=== PATIENT | female | born 1950 | race Caucasian/White ===

== ENCOUNTER 2016-07-05 04:19 | Inpatient (IN) | payer OTHER ==
[~2016-07-05] VITALS: Ht 149.9 cm; Wt 63.5 kg
[~2016-07-05 04:19] MED LIST: KEFLEX500 M1 PO; PERCOCET 5-3251 EACH PO
--- NOTE | 2016-07-05 04:25 | NUR ---
65YO FEMALE TO RM 5 W/CO L CP THAT AWOKE HER THIS AM. STATEES PAIN "WORSENS W/DP BREATH" PT HAS HX OF COPD AND ON 3L NASAL O2 AT ALL TIMES SAT = 88 ON 3L.
--- NOTE | 2016-07-05 04:35 | ED DYSPNEA/ASTHMA COMPLAINT ---
History of Present Illness General Chief Complaint: Dyspnea (COPD, CHF, Other) Stated Complaint: CP Source: patient, family Exam Limitations: no limitations Vital Signs & Intake/Output Vital Signs & Intake/Output Vital Signs Date Time Temp Pulse Resp B/P Pulse O2 O2 Flow FiO2 Ox Delivery Rate 07/05 0502 100 8L 07/05 0446 96 Nasal 3.0L Cannula 07/05 0430 98.0 71 22 139/77 82 Nasal 3.0L Cannula Allergies Coded Allergies: latex (Intermediate, RASH 10/02/15) Reconcile Medications Cephalexin (Keflex) 500 MG CAPSULE 1 CAP PO TID PPX Oxycodone HCl/Acetaminophen (Percocet 5-325 MG Tablet) 1 EACH TABLET 1 TAB PO BID PRN BREAKTHROUGH PAIN Triage Nurses Notes Reviewed? yes Onset: Gradual Duration: day(s): Timing: recent history Severity: moderate Activities at Onset: rest Prior Episodes/Possible Cause: occasional episodes Associated Symptoms: cough, wheezing HPI: 65 yo woman 02 dependent copd, presents with dyspnea, hypoxia, left sided chest wall pain for the past 1-2 days, which worsened this AM. She notes that her left rib cage pain is worse with palpation. She has no swelling of lower extremities, orthopnea, fever, chills. Past History Travel History Traveled to [place] past 21 day No Medical History Any Pertinent Medical History? see below for history Neurological: CVA, TIA, PARTIAL MEMORY LOSS S/P Cardiovascular: hyperlipidemia Respiratory: COPD Surgical History Surgical History: non-contributory Psychosocial History What is your primary language Arabic Family History Hx Contributory? No Review of Systems Review of Systems Constitutional: Reports: no symptoms. EENTM: Reports: no symptoms. Respiratory: Reports: no symptoms. Cardiovascular: Reports: no symptoms. GI: Reports: no symptoms. Genitourinary: Reports: no symptoms. Musculoskeletal: Reports: no symptoms. Skin: Reports: no symptoms. Neurological/Psychological: Reports: no symptoms. Hematologic/Endocrine: Reports: no symptoms. Immunologic/Allergic: Reports: no symptoms. All Other Systems: Reviewed and Negative Physical Exam Physical Exam General Appearance: well developed/nourished, mild distress Head: atraumatic, normal appearance Eyes: Bilateral: normal appearance. Ears, Nose, Throat: normal pharynx, normal ENT inspection Neck: normal inspection, supple, full range of motion Respiratory: wheezing, respiratory distress Cardiovascular: regular rate/rhythm Gastrointestinal: normal bowel sounds, soft, non-tender, no organomegaly Extremities: normal inspection Neurologic/Psych: no motor/sensory deficits, awake, alert, oriented x 3 Skin: intact, normal color, warm/dry Core Measures ACS in differential dx? No Severe Sepsis Present: No Septic Shock Present: No Progress Differential Diagnosis: asthma, AMI, CHF, COPD, musculoskeletal pain Plan of Care: Orders Procedure Date/time Status Nothing by Mouth 07/05 B Active Patient Data 07/05 712 Active Saline Lock 07/05 657 Active Misc Message 07/05 657 Active ED Holding Orders 07/05 657 Active Admit to inpatient 07/05 657 Active Code Status 07/05 657 Active D-DIMER 07/05 453 Complete BLOOD CULTURE 07/06 439 Active Saline Lock 07/05 437 Active Misc Message 07/05 437 Active ED Holding Orders 07/05 437 Active Vital Signs 07/05 437 Active Code Status 07/05 437 Complete Admit to inpatient 07/05 436 Active BLOOD CULTURE 07/06 435 Active TROPONIN LEVEL 07/06 419 Complete PARTIAL THROMBOPLASTIN TIME 07/06 419 Complete PROTHROMBIN TIME 07/06 419 Complete COMPREHENSIVE METABOLIC PANEL 07/06 419 Complete CBC WITHOUT DIFFERENTIAL 07/06 419 Complete B-TYPE NATRIURETIC PEP (BNP) 07/06 419 Complete EKG 07/06 419 Active Laboratory Tests 07/05/16 0454: Anion Gap 10, Estimated GFR > 60, BUN/Creatinine Ratio 12.5, Glucose 90, Calcium 8.9, Total Bilirubin 0.5, AST 18, ALT 31, Alkaline Phosphatase 90, Troponin I < 0.01, Omp-L-Fabfccodhoy Pept 214 H, Total Protein 6.4, Albumin 3.6, Globulin 2.8, Albumin/Globulin Ratio 1.3, PT 11.4, INR 1.09, APTT 31, D-Dimer < 200, CBC w Diff NO MAN DIFF REQ, RBC 4.00 L, MCV 87.2, MCH 28.3, RDW 14.0, MPV 9.1, Gran % 68.6, Lymphocytes % 25.1, Monocytes % 4.3, Eosinophils % 1.9, Basophils % 0.1, Absolute Granulocytes 8.8 H, Absolute Lymphocytes 3.2, Absolute Monocytes 0.6, Absolute Eosinophils 0.2, Absolute Basophils 0, PUBS MCHC 32.5 L 07/05/16437: D-Dimer Cancelled Microbiology 07/05 456 BLOOD: Blood Culture - RECD 07/05 449 BLOOD: Blood Culture - RECD Diagnostic Imaging: Viewed by Me: Radiology Read. Discussed w/RAD: Radiology Read. CXR Impression: NO ACUTE CHANGE Initial ED EKG: AFIB Comments: PATIENT: ELLIS BEST PRESENT AGE: 65 PATIENT ACCOUNT NO: [id number] : 48 LOCATION: [facility] ORDERING PHYSICIAN: BERENICE HARTMANN MD SERVICE DATE: 07/05/16 EXAM TYPE: RAD - XRY-PORTABLE CHEST XRAY EXAMINATION: XR PORTABLE CHEST CLINICAL INFORMATION: Chest pain. COMPARISON: CT chest 01/09/2016 TECHNIQUE: Portable AP portable view of the chest was obtained. 4:27 AM FINDINGS: Emphysematous hyperlucency of lungs. Lungs are clear. No pulmonary vascular congestion. No infiltrate or pleural effusion. The heart size is normal. The cardiac and mediastinal contours are normal. There are calcifications of the thoracic aorta. There are multilevel degenerative changes of dorsal spine. IMPRESSION: No acute change of chest DICTATED BY: SONIA HERNANDEZ MD DATE/TIME DICTATED:07/05/16441 TRIMMING CASER:NALINI DATE/TIME TRANSCRIBED:07/05/16441 CONFIDENTIAL, DO NOT COPY WITHOUT APPROPRIATE AUTHORIZATION. <Electronically signed in Other Vendor System> SIGNED BY: SONIA HERNANDEZ MD 07/05/16447 Departure Departure Disposition: STILL A PATIENT Condition: Stable Clinical Impression Primary Impression: COPD exacerbation Referrals: JARRETT LYMAN MD (PCP/Family) Departure Forms: Customer Survey General Discharge Information Admission Note Spoke With: JARRETT LYMAN MD Documentation of Exam: Documentation of any treatments & extenuating circumstances including Concerns Regarding Discharge (functional status, medication knowledge or non-compliance, living conditions, etc.) that warrant an admission rather than observation: pt with hypoxia, responding to increased 02, most consistent with copd exacerbation. Her chest pain is reproducible, likely musculo skeletal... but merits rule out. Critical Care Note Critical Care Note Critical Care Time: 30-74 min
--- NOTE | 2016-07-05 04:48 | RADIOLOGY REPORT ---
EXAMINATION: XR PORTABLE CHEST CLINICAL INFORMATION: Chest pain. COMPARISON: CT chest 01/09/2016 TECHNIQUE: Portable AP portable view of the chest was obtained. 4:27 AM FINDINGS: Emphysematous hyperlucency of lungs. Lungs are clear. No pulmonary vascular congestion. No infiltrate or pleural effusion. The heart size is normal. The cardiac and mediastinal contours are normal. There are calcifications of the thoracic aorta. There are multilevel degenerative changes of dorsal spine. IMPRESSION: No acute change of chest
--- NOTE | 2016-07-05 04:56 | NUR ---
EKG DONE AND SHOWN TOO DR. HARTMANN.
--- NOTE | 2016-07-05 05:00 | NUR ---
RESP AT BEDSIDE
--- NOTE | 2016-07-05 05:30 | NUR ---
PT MEDICATED WITH ZITHRO, ROCEPHIN, IV TYLENOL AND ZITHROMAX PER EMAR. PT TOLERATED WELL.
[2016-07-05 05:36] LABS: ABSOLUTE BASOPHIL COUNT 0 /CUMM (0.0-0.2); ABSOLUTE EOSINOPHIL COUNT 0.2 /CUMM (0.0-0.7); ABSOLUTE GRANULOCYTE CT 8.8 /CUMM (1.4-6.5); ABSOLUTE LYMPH COUNT 3.2 /CUMM (1.2-3.4); ABSOLUTE MONOCYTE COUNT 0.6 /CUMM (0.10-0.60); BASOPHIL % 0.1 % (0.0-2.0); EOSINOPHIL % 1.9 % (0-5); GRANULOCYTE % 68.6 % (42.2-75.2); HEMATOCRIT 34.8 % (37-47); MEAN CORPUSCULAR HGB 28.3 PG (27.0-31.0); MEAN CORPUSCULAR HGB CONC 32.5 G/DL (33.0-37.0); MEAN CORPUSCULAR VOLUME 87.2 FL (81.0-99.0); MEAN PLATELET VOLUME 9.1 FL (7.4-10.4); PLATELET COUNT 328 /CUMM (130-400); WHITE BLOOD CELL COUNT 12.8 /CUMM (4.8-10.8)
[2016-07-05 05:52] LABS: PT 11.4 SEC (9.4-12.5); PTT 31 SEC (25-37)
--- NOTE | 2016-07-05 06:38 | NUR ---
PT ASSISTED ONTO BEDPAN. VOIDED APPROX 250 CCS CLEAR YELLOW URINE.
--- NOTE | 2016-07-05 07:26 | NUR ---
REPORT RECEIVED. AWAKE,ALERT. STATES STILL OCCASIONAL LT LOWER RIB PAIN 5/10. LUNG SOUNDS-FEW SCATTERED WHEEZED. 02 AT 3L-SAT 94%.
--- NOTE | 2016-07-05 07:52 | NUR ---
PT TO ROOM 174 BED 1
--- NOTE | 2016-07-05 08:39 | History & Physical ---
BRAD WILLAMS 07/05/16 0838: General Information and HPI MD Statement: I have seen and personally examined ELLIS BEST and documented this H&P. The patient is a 65 year old F who presented with a patient stated chief complaint of [Chest pain]. Source of Information: patient, family Exam Limitations: no limitations History of Present Illness: This is a 65 years old lady with history of COPD on home oxygen currently at 3 L , hyperlipidemia, anxiety, dementia who used to live in [place] and recently moved to [place] initially living in [place] and getting his care at [facility], she has never been admitted to [facility]. The patient is presenting with 1 day history of chest pain just below the left breast 9 out of 10 stabbing in nature and moderately worsening with breathing, it's nonradiating and has been associated with worsening shortness of breath. She worked up and in the morning with severe chest pain and then came to the hospital. She denies any palpitation, lightheadedness, dizziness, sweating, nausea or sense of impending doom associated with the chest pain. she has never had this kind of chest pain in the past. He denies any cough out of ordinary, paroxysmal option of dyspnea or orthopnea, she has no fever or chills and denies any sick contacts. For a long time the patient was on oxygen at 2 L and about 3 months ago was increased to 3 L after an admission at [facility]. patient denies any dysuria or change in frequency but reports foul-smelling urine. Patient has no abdominal pain or swelling of lower limbs. Allergies/Medications Allergies: Coded Allergies: latex (Intermediate, RASH 10/02/15) Home Med list Albuterol Sulfate 2.5 MG/3 ML (0.083 %) VIAL.NEB 1 Vial INH/LAURO Q4P PRN COPD (Reported) Alendronate Sodium 70 MG TABLET 1 TAB PO EVERY THURSDAY osteoporosis (Reported) in the morning, at least 30 minutes before the first food, beverage, or medication of the day Atorvastatin Calcium 80 MG TABLET 1 TAB PO DAILY HIGH CHOLESTROL (Reported) Buspirone HCl 15 MG TABLET 1 TAB PO BID ANXIETY (Reported) Cephalexin (Keflex) 500 MG CAPSULE 1 CAP PO TID PPX Clonazepam 1 MG TABLET 1 TAB PO BIDP PRN ANXIETY (Reported) Donepezil HCl (Aricept) 5 MG TABLET 1 TAB PO QPM dementia (Reported) Fluticasone/Vilanterol (Breo Ellipta 100-25 Mcg INH) 100 MCG-25 MCG/DOSE BLST.W.DEV COPD (Reported) Oxycodone HCl/Acetaminophen (Percocet 5-325 MG Tablet) 1 EACH TABLET 1 TAB PO BID PRN BREAKTHROUGH PAIN Paroxetine HCl 40 MG TABLET 1 TAB PO DAILY ANXIETY (Reported) Umeclidinium Goodwin (Incruse Ellipta) 62.5 MCG/ACTUATION BLST.W.DEV COPD ( Reported) Past History Travel History Traveled to [place] past 21 day No Medical History Neurological: CVA, TIA, PARTIAL MEMORY LOSS S/P Cardiovascular: hyperlipidemia Respiratory: COPD Surgical History Surgical History: non-contributory Past Family/Social History Family History Relations & Conditions if any SISTER (Diabetes mellitus). BROTHER (Coronary artery disease). Functional Ability ADLs Independent: dressing, eating, toileting, bathing. Ambulation: independent Review of Systems Review of Systems Constitutional: Denies: chills, fever. EENTM: Denies: no symptoms. Cardiovascular: Reports: chest pain. Denies: palpitations, syncope. Respiratory: Reports: short of breath. Denies: cough, sputum production, wheezing. GI: Denies: no symptoms. Genitourinary: Reports: frequency, urgency (foul-smelling urine). Musculoskeletal: Denies: no symptoms. Skin: Denies: no symptoms. Neurological/Psychological: Denies: no symptoms. All Other Systems: Reviewed and Negative Exam & Diagnostic Data Last 24 Hrs of Vital Signs/I&O Vital Signs Date Time Temp Pulse Resp B/P Pulse O2 O2 Flow FiO2 Ox Delivery Rate 07/05 1059 94 Nasal 3.0L Cannula 07/05 1020 98.1 83 20 140/80 93 Nasal Cannula 07/05 0936 97.5 69 20 138/69 94 Nasal 3.0L Cannula 07/05 0730 94 Nasal 3.0L Cannula 07/05 0728 97.1 64 18 131/78 94 Nasal 3.0L Cannula 07/05 0502 100 8L 07/05 0446 96 Nasal 3.0L Cannula 07/05 0430 98.0 71 22 139/77 82 Nasal 3.0L Cannula Intake & Output 07/05 1600 07/05 0800 07/05 0000 Intake Total 100 Output Total 250 250 Balance -250 -150 Intake, IV 100 Output, Urine 250 250 Patient 140 lb Weight Physical Exam General Appearance Alert, Oriented X3, Cooperative, No Acute Distress Skin No Rashes HEENT Atraumatic, Mucous Membr. moist/pink Neck Supple, No JVD Cardiovascular Regular Rate, Normal S1, Normal S2 Lungs decreased breath sounds with expiratory wheeze Abdomen Normal Bowel Sounds, Soft, No Tenderness, obese abdomen Neurological Normal Speech, Normal Tone Extremities No Clubbing, No Cyanosis, No Edema Vascular Normal Pulses Last 24 Hrs of Labs/Poncho: Laboratory Tests 07/05/16 0454: Anion Gap 10, Estimated GFR > 60, BUN/Creatinine Ratio 12.5, Glucose 90, Calcium 8.9, Total Bilirubin 0.5, AST 18, ALT 31, Alkaline Phosphatase 90, Troponin I < 0.01, Ejd-K-Qjjcfeystps Pept 214 H, Total Protein 6.4, Albumin 3.6, Globulin 2.8, Albumin/Globulin Ratio 1.3, PT 11.4, INR 1.09, APTT 31, D-Dimer < 200, CBC w Diff NO MAN DIFF REQ, RBC 4.00 L, MCV 87.2, MCH 28.3, RDW 14.0, MPV 9.1, Gran % 68.6, Lymphocytes % 25.1, Monocytes % 4.3, Eosinophils % 1.9, Basophils % 0.1, Absolute Granulocytes 8.8 H, Absolute Lymphocytes 3.2, Absolute Monocytes 0.6, Absolute Eosinophils 0.2, Absolute Basophils 0, PUBS MCHC 32.5 L 07/05/16 0438: D-Dimer Cancelled Microbiology 07/05 456 BLOOD: Blood Culture - RECD 07/05 449 BLOOD: Blood Culture - RECD Diagnostic Data EKG Results Normal sinus rhythm regular no T-wave changes to QTC 451 CXR Results No acute changes Assessment/Plan Assessment: This is a 65 years old lady with history of COPD on oxygen 3 L at home, anxiety, depression, and the onset dementia who presented after developing acute severe chest pain just below the left breast 9 out of 10 nonradiating that worsens with breathing. On presentation the patient has reduced breath sounds with mild expiratory wheeze, she was hypoxic at 82% but subsequently picked up nicely to normal saturation on her baseline oxygen of 3 L, She has mild leukocytosis of 12,800, hypokalemia of 3.4, Problem list COPD exacerbation Rule out ACS Anxiety Plan Admit to telemetry floor, vital signs every shift, continuous carboy filler Patient has received 125 mg of IV Solu-Medrol will continue with 40 mg every 8 off Solu-Medrol Peak expiratory flow rate, TRC nebulization, continue home inhalers Serial troponin and EKG to rule out ACS Anxiety continue home dose of clonazepam in Dementia continue with donepezil 5 mg daily Hyperlipidemia continue atorvastatin 80 mg daily Patient is full code and will be on Lovenox for DVT prophylaxis As Ranked By This Provider Problem List: 1. COPD exacerbation 2. Anxiety 3. Dementia Core Measures/Miscellaneous Acute Coronary Syndrome ACS Diagnosis: No Cerebrovascular Accident CVA/TIA Diagnosis: No Congestive Heart Failure CHF Diagnosis: No Venous Thromboembolism VTE Risk Factors: Acute medical illness, Age > 40 [facility] prophylaxis d/t: No contraindications No VTE Pharm Prophylaxis d/t: No contraindications VTE Diagnosis: No VTE Type: NONE VTE Confirmed by (Test): NONE Severe Sepsis Severe Sepsis Present: No Septic Shock Septic Shock Present: No Miscellaneous Documentation Attending Case Discussed With: JARRETT LYMAN MD Primary Care Physician: JARRETT LYMAN MD Patient sees these Specialists Dr. Sawyer Level of Patient Care: Telemetry Resident Review Statement Resident Statement: examined this patient, Refer to my review above JARRETT LYMAN MD 07/05/16 1238: Attending Review Statement Attending Statement Attending Statement: examined this patient, discuss w/resident/PA/BIOMETRIC FINGERPRINTING TECHNICIAN, agreed w/resident/PA/BIOMETRIC FINGERPRINTING TECHNICIAN, reviewed EMR data (avail)
--- NOTE | 2016-07-05 08:43 | NUR ---
0750 ATTEMPTED TO GET REPORT FROM ER. PLACED ON HOLD BY TALITA. NO ANSWER. AWAITING CALL BACK.
[2016-07-05] MEDS ORDERED: BREO ELLIPTA 11 EACH (09:29)
[2016-07-05] MEDS ORDERED: INCRUSE ELLI62.5 MCG (09:29)
[2016-07-05] MEDS ORDERED: ATORVASTATIN CA80 M1 PO (09:31)
[2016-07-05] MEDS ORDERED: PAROXETINE HCL40 M1 PO (09:32)
[2016-07-05] MEDS ORDERED: BUSPIRONE HCL15 M1 PO (09:32)
[2016-07-05] MEDS ORDERED: ALENDRONATE SOD70 M2 PO (09:33)
[2016-07-05] MEDS ORDERED: CLONAZEPAM1 M2 PO (09:34)
[2016-07-05] MEDS ORDERED: ARICEPT5 M1 PO (09:34)
--- NOTE | 2016-07-05 09:36 | NUR ---
HOUSE STAFF REMAINS AT BEDSIDE. FAMILY AT BEDSIDE FOR EMOTIONAL SUPPORT.
--- NOTE | 2016-07-05 09:37 | NUR ---
0915 attempted to get report from ER for 2nd time. Told nurse will call back.
--- NOTE | 2016-07-05 09:41 | NUR ---
REPORT TO EMILY BRAMBILA 1 NO TELI. HOUSESTAFF IN W/PT.
[2016-07-05 10:20] VITALS: BP 140/80
--- NOTE | 2016-07-05 12:34 | Admission Certification ---
Admission Certification Certification Statement - As attending physician, I certify that at the time of - admission, based on clinical presentation, severity of - symptoms, need for further diagnostic testing and - therapeutic interventions, and risk of adverse outcomes - without in-hospital treatment, in my clinical assessment, - this patient requires an acute hospital stay for a minimum - of two nights or longer. I have also considered psychsocial - factors such as support system, advanced age, financial - issues, cognitive issues, and failed out-patient treatments, - past re-admission history, safety of patient, and lack of - compliance as applicable. Specific rationale supporting this admission is: Left-sided chest pain
--- NOTE | 2016-07-05 12:37 | Cons- Pulmonary ---
General Information and HPI Consulting Request Date of Consult: 07/05/16 Requested By: Dr. Eason Reason for Consult: COPD exacerbation Source of Information: patient Exam Limitations: no limitations History of Present Illness: 65 year old woman. Known to me from the office. Consultation for exacerbation of COPD & lung nodules At home on BREO/Incruse/Ventolin/Nebulizers. She is on oxygen at home. Low-dose CAT scan performed 01/09/2016. No new suspicious pulmonary masses or infiltrates. There is an apparent new patchy groundglass airspace abnormality in the left lower lobe ill-defined borders may reflect some inflammatory or infectious process. Previously noted area of probable scarring with nodular central region measuring up to 9 mm has largely resolved and probably reflects sequela of inflammatory process. No lymphadenopathy or pleural effusions. It was recommended by the radiologist to repeat a low-dose noncontrast chest CT in 6 months to assess for stability of these findings. She had pulmonary function test performed 07/10/2015 showing severe obstructive lung disease with a significant bronchodilator response and a severely reduced DLCO consistent with emphysema. She also desaturates to 87% on 2 L with exertion. COPD, HLD, HTN, Anxiety. On BREO and Incruse Quit smoking around 2009. Patient is on oxygen 2L NC. On exertion she desaturates to 81% on room air and with oxygen at 2L improves to 92%. Cough with yellowish phlegm, chronic intermittent wheezing and dyspnea primary on exertion. CXR without acute changes. WBC 12.8. BNP 214. K+ 3.4. + Chest pain, non-radiating, stabbing 9/10, reproducible, left sided, currently resolved. Allergies/Medications Allergies: Coded Allergies: latex (Intermediate, RASH 10/02/15) Home Med List: Alendronate Sodium 70 MG TABLET 1 TAB PO EVERY THURSDAY osteoporosis (Reported) in the morning, at least 30 minutes before the first food, beverage, or medication of the day Atorvastatin Calcium 80 MG TABLET 1 TAB PO DAILY HIGH CHOLESTROL (Reported) Buspirone HCl 15 MG TABLET 1 TAB PO BID ANXIETY (Reported) Cephalexin (Keflex) 500 MG CAPSULE 1 CAP PO TID PPX Clonazepam 1 MG TABLET 1 TAB PO BIDP PRN ANXIETY (Reported) Donepezil HCl (Aricept) 5 MG TABLET 1 TAB PO QPM dementia (Reported) Fluticasone/Vilanterol (Breo Ellipta 100-25 Mcg INH) 100 MCG-25 MCG/DOSE BLST.W.DEV COPD (Reported) Oxycodone HCl/Acetaminophen (Percocet 5-325 MG Tablet) 1 EACH TABLET 1 TAB PO BID PRN BREAKTHROUGH PAIN Paroxetine HCl 40 MG TABLET 1 TAB PO DAILY ANXIETY (Reported) Umeclidinium [place] (Incruse Ellipta) 62.5 MCG/ACTUATION BLST.W.DEV COPD ( Reported) Current Medications: Current Medications Sig/Koby Start time Last Medication Dose Route Stop Time Status Admin Acetaminophen 650 MG Q6P PRN 07/05 1145 AC PO Acetaminophen 0 .STK-MED ONE 07/05 0454 DC IV Acetaminophen 1,000 MG ONCE ONE 07/05 444 DC 07/05 N/A 1 UNIT IV 07/05 458 0514 Albuterol Sulfate 3 ML ONCE ONE 07/05 0445 DC 07/05 INH 07/05 445 0445 Albuterol Sulfate 3 ML ONCE ONE 07/05 044 DC 07/05 INH 07/05 445 0502 Alendronate Sodium 70 MG Serrano 07/06 1000 AC PO Atorvastatin Calcium 80 MG DAILY 07/05 1046 AC PO Azithromycin 250 MG DAILY 07/06 1000 CAN IV Azithromycin 500 MG Q24H 07/06 1000 CAN Sodium Chloride 250 ML IV Azithromycin 250 MG DAILY 07/06 1000 AC PO Azithromycin 500 MG ONCE ONE 07/05 044 DC 07/05 PO 07/05 445 0504 Budesonide/ 2 PUF BID 07/05 1049 AC Formoterol Fumarate INH Buspirone HCl 15 MG BID 07/05 1046 AC PO Ceftriaxone Sodium 0 .STK-MED ONE 07/05 045 DC .ROUTE Ceftriaxone Sodium 1,000 MG ONCE ONE 07/05 0445 DC 07/05 IV 07/05 044 0514 Clonazepam 1 MG BID PRN 07/05 1100 AC PO 07/12 1059 Donepezil HCl 5 MG QPM 07/05 2200 AC PO Enoxaparin Sodium 40 MG DAILY 07/06 1000 AC SC Ibuprofen 600 MG Q6P PRN 07/05 1145 AC PO Ipratropium [place] 2.5 ML ONCE ONE 07/05 0445 DC 07/05 INH 07/05 445 0445 Ipratropium [place] 2.5 ML ONCE ONE 07/05 044 DC 07/05 INH 07/05 445 0502 Ketorolac 30 MG ONCE ONE 07/05 0445 DC 07/05 Tromethamine IV 07/05 445 0447 Ketorolac 0 .STK-MED ONE 07/05 044 DC Tromethamine .ROUTE Methylprednisolone 40 MG Q8 07/06 0600 AC IV 07/09 2201 Methylprednisolone 125 MG ONCE ONE 07/05 0445 DC 07/05 IV 07/05 445 0447 Methylprednisolone 0 .STK-MED ONE 07/05 044 DC .ROUTE Morphine Sulfate 1 MG Q4P PRN 07/05 1145 AC IV Paroxetine HCl 40 MG DAILY 07/05 1050 AC PO Potassium Chloride 40 MEQ ONCE ONE 07/05 0845 DC PO 07/05 0846 Tiotropium [place] 1 PUF DAILY 07/05 1100 AC INH Review of Systems Comments 18 point review of systems performed. Pertinent positive and negative findings are in the HPI, otherwise negative. 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 BROTHER (Coronary artery disease). Psychosocial History Where Do You Live? Home Services at Home: Oxygen Smoking Status: Former Smoker Functional Ability ADLs Independent: dressing, eating, toileting, bathing. Ambulation: independent Exam & Diagnostic Data Last 24 Hrs of Vital Signs/I&O Vital Signs Date Time Temp Pulse Resp B/P Pulse O2 O2 Flow FiO2 Ox Delivery Rate 07/05 1059 94 Nasal 3.0L Cannula 07/05 1020 98.1 83 20 140/80 93 Nasal Cannula 07/05 0936 97.5 69 20 138/69 94 Nasal 3.0L Cannula 07/05 0730 94 Nasal 3.0L Cannula 07/05 07 97.1 64 18 131/78 94 Nasal 3.0L Cannula 07/05 0502 100 8L 07/05 445 96 Nasal 3.0L Cannula 07/05 043 98.0 71 22 139/77 82 Nasal 3.0L Cannula Intake & Output 07/05 1600 07/05 0808 0000 Intake Total 100 Output Total 250 250 Balance -250 -150 Intake, IV 100 Output, Urine 250 250 Patient 140 lb Weight Physical Exam Other Physical Findings: Gen - alert and awake HEENT - NCAT CVS - S1, S2, no murmurs, rubs or gallops Lungs - prolonged end expiratory phase, diminished breath sounds Abdomen - soft, non-tender, bs+ Ext - no edema, no cyanosis Last 48 Hrs of Labs/Poncho: Laboratory Tests 07/05/16 1155: Troponin I Pending 07/05/16 0454: Anion Gap 10, Estimated GFR > 60, BUN/Creatinine Ratio 12.5, Glucose 90, Calcium 8.9, Total Bilirubin 0.5, AST 18, ALT 31, Alkaline Phosphatase 90, Troponin I < 0.01, Aam-K-Qsmzrcbcedx Pept 214 H, Total Protein 6.4, Albumin 3.6, Globulin 2.8, Albumin/Globulin Ratio 1.3, PT 11.4, INR 1.09, APTT 31, D-Dimer < 200, CBC w Diff NO MAN DIFF REQ, RBC 4.00 L, MCV 87.2, MCH 28.3, RDW 14.0, MPV 9.1, Gran % 68.6, Lymphocytes % 25.1, Monocytes % 4.3, Eosinophils % 1.9, Basophils % 0.1, Absolute Granulocytes 8.8 H, Absolute Lymphocytes 3.2, Absolute Monocytes 0.6, Absolute Eosinophils 0.2, Absolute Basophils 0, PUBS MCHC 32.5 L 07/05/16 0438: D-Dimer Cancelled Assessment/Plan Impression/Plan: Impression 65 year old woman * Acute exacerbation of COPD and acute hypoxemic respiratory failure, possibly secondary to acute bronchitis viral or bacterial in nature * Chest pain - reproducible and currently resolved Plan - cardiac enzymes and telemetry monitoring per primary team - Zithromax was ordered to complete a 5 day course - Reduce Solu-Medrol 40 mg IV every 12 for now with monitoring of fingersticks - Discontinue Spiriva, discontinue Symbicort - patient is on BREO and Incruse at home this is to avoid confusion - Ensure patient gets albuterol/ipratropium nebulized - TRC/Nebs - CT chest to evaluate for pulmonary nodules without contrast while inpatient DVT prophylaxis at all times Consult Acknowledgment - Thank you for your consult request.
--- NOTE | 2016-07-05 12:38 | PN- Att Addend ---
Attending Addendum Attending Brief Note Patient has persistent left-sided chest pain however improved General Appearance: Alert, No Acute Distress Skin: Grossly normal HEENT: PEERLA Neck: Supple, No JVD Cardiovascular: Left lateral rib tenderness Lungs: Expiratory wheeze Abdomen: Normal Bowel Sounds, Soft, No Tenderness Neurological: Normal Speech, Strength at 5/5 X4 Ext, Cranial Nerves 3-12 NL, Reflexes 2+ Extremities: No Clubbing, No Cyanosis, No Edema Vascular: Normal Pulses Assessment 65-year-old history of COPD on 3 L of oxygen, anxiety, dementia who has been following pulmonary with repeat CAT scans of the chest and she is due for a CAT scan on Thursday presents with sudden onset left chest discomfort last night. EKG shows ST depressions on lateral leads however troponins were negative and there are no prior EKGs to compare. She does have mild COPD exacerbation and her chest pain appears noncardiac maybe more muscular skeletal/pleural-based. We will get a CAT scan of the chest with IV contrast and also get a cardiology evaluation for abnormal EKG findings. Plan Cycle troponins and EKGs Cardiology evaluation for abnormal EKG CAT scan chest with IV contrast Inform pulmonary Decrease Solu-Medrol to every 12 hours Change to by mouth prednisone in a.m. Continue other home meds Discontinue morphine DVT prophylaxis Current Medications Sig/Koby Start time Last Medication Dose Route Stop Time Status Admin Acetaminophen 650 MG Q6P PRN 07/05 1145 AC PO Acetaminophen 0 .STK-MED ONE 07/05 453 DC IV Acetaminophen 1,000 MG ONCE ONE 07/05 444 DC 07/05 N/A 1 UNIT IV 07/05 458 0514 Albuterol Sulfate 3 ML ONCE ONE 07/05 444 DC 07/05 INH 07/05 445 0445 Albuterol Sulfate 3 ML ONCE ONE 07/05 444 DC 07/05 INH 07/05 445 0502 Alendronate Sodium 70 MG Serrano 07/06 1000 AC PO Atorvastatin Calcium 80 MG DAILY 07/05 1046 AC PO Azithromycin 250 MG DAILY 07/06 1000 CAN IV Azithromycin 500 MG Q24H 07/06 1000 CAN Sodium Chloride 250 ML IV Azithromycin 250 MG DAILY 07/06 1000 AC PO Azithromycin 500 MG ONCE ONE 07/05 0445 DC 07/05 PO 07/05 445 0504 Budesonide/ 2 PUF BID 07/05 1049 AC Formoterol Fumarate INH Buspirone HCl 15 MG BID 07/05 1046 AC PO Ceftriaxone Sodium 0 .STK-MED ONE 07/05 0454 DC .ROUTE Ceftriaxone Sodium 1,000 MG ONCE ONE 07/05 0445 DC 07/05 IV 07/05 445 0514 Clonazepam 1 MG BID PRN 07/05 1100 AC PO 07/12 1059 Donepezil HCl 5 MG QPM 07/05 2200 AC PO Enoxaparin Sodium 40 MG DAILY 07/06 1000 AC SC Ibuprofen 600 MG Q6P PRN 07/05 1145 AC PO Ipratropium [place] 2.5 ML ONCE ONE 07/05 0445 DC 07/05 INH 07/05 445 0445 Ipratropium [place] 2.5 ML ONCE ONE 07/05 0445 DC 07/05 INH 07/05 445 0502 Ketorolac 30 MG ONCE ONE 07/05 0445 DC 07/05 Tromethamine IV 07/05 044 0447 Ketorolac 0 .STK-MED ONE 07/05 0443 DC Tromethamine .ROUTE Methylprednisolone 40 MG Q8 07/06 0600 AC IV 07/09 220 Methylprednisolone 125 MG ONCE ONE 07/05 444 DC 07/05 IV 07/05 445 0447 Methylprednisolone 0 .STK-MED ONE 07/05 044 DC .ROUTE Morphine Sulfate 1 MG Q4P PRN 07/05 1145 AC IV Paroxetine HCl 40 MG DAILY 07/05 1050 AC PO Potassium Chloride 40 MEQ ONCE ONE 07/05 0845 DC PO 07/05 0846 Tiotropium [place] 1 PUF DAILY 07/05 1100 AC INH Laboratory Tests 07/05 07/05 07/05 1155 0454 0438 Chemistry Sodium (137 - 145 mmol/L) 144 Potassium (3.5 - 5.1 mmol/L) 3.4 L Chloride (98 - 107 mmol/L) 101 Carbon Dioxide (22 - 30 mmol/L) 32 H Anion Gap (5 - 16) 10 BUN (7 - 17 mg/dL) 10 Creatinine (0.5 - 1.0 mg/dL) 0.8 Estimated GFR (>60 ml/min) > 60 BUN/Creatinine Ratio (7 - 25 %) 12.5 Glucose (65 - 99 mg/dL) 90 Calcium (8.4 - 10.2 mg/dL) 8.9 Total Bilirubin (0.2 - 1.3 mg/dL) 0.5 AST (14 - 36 U/L) 18 ALT (9 - 52 U/L) 31 Alkaline Phosphatase (<127 U/L) 90 Troponin I (< 0.11 ng/ml) Pending < 0.01 Qua-E-Tvzrfppibzq Pept (<125 pg/mL) 214 H Total Protein (6.3 - 8.2 g/dL) 6.4 Albumin (3.5 - 5.0 g/dL) 3.6 Globulin (1.9 - 4.2 gm/dL) 2.8 Albumin/Globulin Ratio (1.1 - 2.2 %) 1.3 Coagulation PT (9.4 - 12.5 SEC) 11.4 INR (0.90 - 1.19) 1.09 APTT (25 - 37 SEC) 31 D-Dimer (70 - 232 ng/ml) < 200 Cancelled Hematology CBC w Diff NO MAN DIFF REQ WBC (4.8 - 10.8 /CUMM) 12.8 H RBC (4.20 - 5.40 /CUMM) 4.00 L Hgb (12.0 - 16.0 G/DL) 11.3 L Hct (37 - 47 %) 34.8 L MCV (81.0 - 99.0 FL) 87.2 MCH (27.0 - 31.0 PG) 28.3 RDW (11.5 - 14.5 %) 14.0 Plt Count (130 - 400 /CUMM) 328 MPV (7.4 - 10.4 FL) 9.1 Gran % (42.2 - 75.2 %) 68.6 Lymphocytes % (20.5 - 51.1 %) 25.1 Monocytes % (1.7 - 9.3 %) 4.3 Eosinophils % (0 - 5 %) 1.9 Basophils % (0.0 - 2.0 %) 0.1 Absolute Granulocytes (1.4 - 6.5 /CUMM) 8.8 H Absolute Lymphocytes (1.2 - 3.4 /CUMM) 3.2 Absolute Monocytes (0.10 - 0.60 /CUMM) 0.6 Absolute Eosinophils (0.0 - 0.7 /CUMM) 0.2 Absolute Basophils (0.0 - 0.2 /CUMM) 0 PUBS MCHC (33.0 - 37.0 G/DL) 32.5 L Vital Signs Date Time Temp Pulse Resp B/P Pulse O2 O2 Flow FiO2 Ox Delivery Rate 07/05 1059 94 Nasal 3.0L Cannula 07/05 1020 98.1 83 20 140/80 93 Nasal Cannula 07/05 0936 97.5 69 20 138/69 94 Nasal 3.0L Cannula 07/05 0730 94 Nasal 3.0L Cannula 07/05 0728 97.1 64 18 131/78 94 Nasal 3.0L Cannula 07/05 0502 100 8L 07/05 0446 96 Nasal 3.0L Cannula 07/05 0430 98.0 71 22 139/77 82 Nasal 3.0L Cannula
[2016-07-05 16:17] VITALS: BP 140/80
--- NOTE | 2016-07-05 16:20 | CT SCAN REPORT ---
EXAMINATION: CT CHEST WITHOUT CONTRAST CLINICAL INFORMATION: Left-sided chest pain, reproducible with palpation, pleuritic. Suspected left-sided pleural disease versus rib fracture. COMPARISON: Outside CT of the chest done on 07/18/2015 and 01/09/2016. TECHNIQUE: Multidetector volumetric CT imaging of the chest was done. Axial MIP volume rendering provided. Sagittal and coronal reformatted images were obtained. 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 LUNGS: Emphysematous changes are present predominantly involving both upper lobes of the lung, similar to prior studies. Interval development of linear pleural parenchymal opacities are noted at apical segment of the right upper lobe of the lung (see the fernandez images). Interval development of linear pleural parenchymal airspace disease is also noted within the lingula abutting the anteroinferior aspect of the left major fissure (see the fernandez images). Previously documented linear pleuroparenchymal opacities with overlying subpleural nodular opacity involving the posterior medial aspect of the superior segment of left lower lobe of the lung, and linear pleural parenchymal opacities involving the anteromedial aspect of the lingular segment of the left upper lobe of the lung appear unchanged since most recent prior study dated 01/09/2016. Linear pleural parenchymal disease abutting the left hemidiaphragm at the level of the left posterior costophrenic sulcus appears unchanged as well. The tracheobronchial tree appears patent. MEDIASTINUM: Atherosclerotic disease including coronary arterial calcifications are present. There is no pathologically enlarged mediastinal, hilar lymphadenopathy present. No significant change. PLEURA: There is no pleural effusion. No pleural mass or thickening. AXILLA: No lymphadenopathy. UPPER ABDOMEN: Unremarkable. OSSEOUS STRUCTURES: There is no displaced left hemithoracic rib fracture present. Multilevel degenerative spondylosis-related changes are noted in the spine. No suspicious lytic or sclerotic abnormality. IMPRESSION: 1. Emphysematous changes predominantly involving both upper lobes of the lung, appear similar to prior outside CT study dated 07/18/2015 and 01/09/2016. 2. Previously documented somewhat linear pleuroparenchymal opacities involving the lingula and superior segment of left upper lobe of the lung and left lung base appear stable. 3. Interval development of nonspecific linear focal pleural parenchymal opacities are noted at the apical segment of right upper lobe of the lung, within the lingular segment of left upper lobe abutting the anteroinferior aspect of the left major fissure, may represent developing pleural parenchymal scar, infiltrate, atelectasis and less likely to be neoplasm. 4. Atherosclerotic disease including coronary arterial calcifications, unchanged since prior studies. 5. No CT evidence of any displaced left hemithoracic rib fracture identified. 6. Followup imaging to document stability and/or resolution of the multifocal airspace abnormalities is recommended.
[2016-07-05 22:51] VITALS: BP 138/70
[2016-07-06] MEDS ORDERED: ALBUTEROL2.5 MG/3 M INH/SOL (07:03)
[2016-07-06 08:15] VITALS: BP 136/84
[2016-07-06 08:40] LABS: ABSOLUTE BASOPHIL COUNT 0 /CUMM (0.0-0.2); ABSOLUTE EOSINOPHIL COUNT 0 /CUMM (0.0-0.7); ABSOLUTE LYMPH COUNT 1.7 /CUMM (1.2-3.4); ABSOLUTE MONOCYTE COUNT 1.2 /CUMM (0.10-0.60); BASOPHIL % 0.1 % (0.0-2.0); EOSINOPHIL % 0 % (0-5); GRANULOCYTE % 87.5 % (42.2-75.2); HEMATOCRIT 34.4 % (37-47); MEAN CORPUSCULAR HGB 28.4 PG (27.0-31.0); MEAN CORPUSCULAR HGB CONC 32.2 G/DL (33.0-37.0); MEAN CORPUSCULAR VOLUME 88.2 FL (81.0-99.0); MEAN PLATELET VOLUME 9.5 FL (7.4-10.4); PLATELET COUNT 332 /CUMM (130-400); RBC DISTRIBUTION WIDTH 14.5 % (11.5-14.5)
[2016-07-06 09:12] LABS: WHITE BLOOD CELL COUNT 22.9 /CUMM (4.8-10.8)
--- NOTE | 2016-07-06 09:48 | PN- Housestaff ---
Subjective Follow-up For: COPD acute exacerbation Complaints: no complaints Tele-Events Since Last Visit: Normal sinus rhythm, heart rate between 65-75 , No any overnight events Subjective: Patient is seen and examined at the bedside. She was feeling much better on 2 liters of oxygen. Review of Systems Constitutional: Reports: weakness. Cardiovascular: Denies: chest pain. Respiratory: Denies: cough, short of breath. Gastrointestinal: Denies: no symptoms. Objective Last 24 Hrs of Vital Signs/I&O Vital Signs Date Time Temp Pulse Resp B/P Pulse O2 O2 Flow FiO2 Ox Delivery Rate 07/06 1629 94 Nasal 3.0L Cannula 07/06 1622 97.9 79 20 138/78 94 Nasal 2.0L Cannula 07/06 0815 98.6 69 20 136/84 94 Nasal 3.0L Cannula 07/06 0800 94 Nasal 3.0L Cannula 07/06 0755 94 Nasal 3.0L Cannula 07/06 0000 94 Nasal 3.0L Cannula 07/05 2251 98.2 80 20 138/70 92 Nasal 3.0L Cannula Intake & Output 07/06 1600 07/06 0800 07/06 0000 Intake Total 400 360 350 Output Total 300 400 200 Balance 100 -40 150 Intake, Oral 400 360 350 Number 0 Bowel Movements Output, Urine 300 400 200 Physical Exam General Appearance: Alert, Oriented X3, Cooperative, No Acute Distress Cardiovascular: Normal S1, Normal S2, murmur present Lungs: Clear to Auscultation, mild basilar crackles, occasional wheezing Abdomen: Soft, No Tenderness Extremities: No Clubbing, No Cyanosis, mild edema Current Medications: Current Medications Sig/Koby Start time Last Medication Dose Route Stop Time Status Admin Acetaminophen 650 MG Q6P PRN 07/05 1145 DCD PO Albuterol Sulfate 3 ML EVERY 4 HRS/AWAKE 07/06 1999 DCD 07/06 INH 1630 Alendronate Sodium 70 MG Serrano 07/06 1000 DCD 07/06 PO 0824 Atorvastatin Calcium 80 MG DAILY 07/05 104 DCD 07/06 PO 0934 Azithromycin 250 MG DAILY 07/06 1000 DCD 07/06 PO 0933 Buspirone HCl 15 MG BID 07/05 104 DCD 07/06 PO 0932 Clonazepam 1 MG .STK-MED ONE 07/06 937 DC PO 07/06 938 Clonazepam 1 MG .STK-MED ONE 07/05 2243 DC PO 07/05 2244 Clonazepam 1 MG BID PRN 07/05 1100 DCD 07/05 PO 07/12 1059 2253 Donepezil HCl 5 MG QPM 07/05 2200 DCD 07/05 PO 2034 Enoxaparin Sodium 40 MG DAILY 07/06 1000 DCD 07/06 SC 0941 Ibuprofen 600 MG Q6P PRN 07/05 1145 DCD PO Ipratropium [place] 2.5 ML EVERY 4 HRS/AWAKE 07/05 2000 DCD 07/06 INH 1630 Methylprednisolone 40 MG 0500,1700 07/05 1700 DC 07/05 IV 07/06 0000 1624 Paroxetine HCl 40 MG DAILY 07/05 1050 DCD 07/06 PO 0934 Prednisone 10 MG DAILY 07/14 1000 DCD PO 07/16 0959 Prednisone 20 MG DAILY 07/12 1000 DCD PO 07/14 0959 Prednisone 30 MG DAILY 07/10 1000 DCD PO 07/12 0959 Prednisone 40 MG DAILY 07/08 1000 DCD PO 07/10 0959 Prednisone 50 MG DAILY 07/06 1000 DCD 07/06 PO 07/08 0959 0934 Last 24 Hrs of Lab/Poncho Results Last 24 Hrs of Labs/Mics: Laboratory Tests 07/06/16 0627: Anion Gap 6, Estimated GFR > 60, BUN/Creatinine Ratio 24.3, CBC w Diff MAN DIFF ORDERED, RBC 3.90 L, MCV 88.2, MCH 28.4, RDW 14.5, MPV 9.5, Gran % 87.5 H, Lymphocytes % 7.3 L, Monocytes % 5.1, Eosinophils % 0, Basophils % 0.1, Absolute Granulocytes 20.0 H, Absolute Lymphocytes 1.7, Absolute Monocytes 1.2 H, Absolute Eosinophils 0, Absolute Basophils 0, Platelet Estimate VERIFIED BY SMEAR, Polychromasia 1+, Poikilocytosis 1+, Ovalocytes 1+, Independence Cells 1+, PUBS MCHC 32.2 L Assessment/Plan Assessment: This is a 65 years old lady with history of COPD on home oxygen currently at 3 L , hyperlipidemia, anxiety, dementia, presented with 1 day history of chest pain. Vital signs-temperature 97.9, pulse 79, respiratory rate 20, blood pressure 130/ 78, SPO2 94% on 2 liters of nasal cannula. Plan - Discharge today COPD acute exacerbation, on 2 liters of oxygen by nasal cannula * Advised to continue tapering doses of prednisone 50 milligrams for 3 days, 40 milligrams for 3 days, 30 milligrams for 3 days, 20 milligrams for 3 days, 10 milligrams for 3 days. Advised to follow-up with the cras. Advise to have CT scan of the chest as an outpatient. * Discussed Dr. Harper, he advised echocardiogram and stress test as an outpatient for further evaluation of coronary artery disease * Diet -heart healthy diet * DVT prophylaxis-ALP S/heparin * CODE STATUS-full code Problem List: 1. Nonspecific ST-T wave electrocardiographic changes 2. COPD exacerbation Pain Ratin Pain Location: Left-sided chest pain Pain Goal: Remain pain free Pain Plan: Mild to moderate, avoid NSAIDs Tomorrow's Labs & Rationales: Not require as patient is discharged DVT/Prophylaxis: mechanical, pharmacological
--- NOTE | 2016-07-06 11:13 | PN- Pulmonary ---
Subjective HPI/Critical Care Issues: Patient seen and examined. Her tremulousness is improved. Her shortness of breath has been improving as well. Her chest pain has resolved. Objective Current Medications: Current Medications Sig/Koby Start time Last Medication Dose Route Stop Time Status Admin Acetaminophen 650 MG Q6P PRN 07/05 1145 AC PO Albuterol Sulfate 3 ML EVERY 4 HRS/AWAKE 07/06 1999 AC 07/06 INH 0745 Alendronate Sodium 70 MG [place]errano 07/06 1000 AC 07/06 PO 0824 Atorvastatin Calcium 80 MG DAILY 07/05 1046 AC 07/06 PO 0934 Azithromycin 250 MG DAILY 07/06 1000 CAN IV Azithromycin 500 MG Q24H 07/06 1000 CAN Sodium Chloride 250 ML IV Azithromycin 250 MG DAILY 07/06 1000 AC 07/06 PO 0933 Budesonide/ 2 PUF BID 07/05 1049 DC Formoterol Fumarate INH Buspirone HCl 15 MG BID 07/05 1046 AC 07/06 PO 0932 Clonazepam 1 MG .STK-MED ONE 07/05 2243 DC PO 07/05 2244 Clonazepam 1 MG .STK-MED ONE 07/05 1441 DC PO 07/05 1442 Clonazepam 1 MG BID PRN 07/05 1100 AC 07/05 PO 07/12 1059 2253 Donepezil HCl 5 MG QPM 07/05 2200 AC 07/05 PO 2034 Enoxaparin Sodium 40 MG DAILY 07/06 1000 AC 07/06 SC 0941 Ibuprofen 600 MG Q6P PRN 07/05 1145 AC PO Ipratropium [place] 2.5 ML EVERY 4 HRS/AWAKE 07/06 1999 AC 07/06 INH 0745 Methylprednisolone 40 MG Q8 07/06 0600 DC IV 07/09 2201 Methylprednisolone 40 MG 0500,1700 07/05 1700 DC 07/05 IV 07/06 0000 1624 Methylprednisolone 40 MG Q12 07/05 1315 DC IV 07/06 0000 Morphine Sulfate 1 MG Q4P PRN 07/05 1145 DC IV Paroxetine HCl 40 MG DAILY 07/05 1050 AC 07/06 PO 0934 Prednisone 10 MG DAILY 07/14 1000 AC PO 07/16 0959 Prednisone 20 MG DAILY 07/12 1000 AC PO 07/14 0959 Prednisone 30 MG DAILY 07/10 1000 AC PO 07/12 0959 Prednisone 40 MG DAILY 07/08 1000 AC PO 04/13 0959 Prednisone 50 MG ONCE 07/06 1000 CAN PO 07/16 958 Prednisone 50 MG DAILY 07/06 1000 AC 07/06 PO 07/08 0859 0934 Prednisone 60 MG ONCE 07/05 1315 DC PO 07/17 1314 Tiotropium [place] 1 PUF DAILY 07/05 1100 DC INH Vital Signs & I&O Last 24 Hrs of Vitals and I&O: Vital Signs Date Time Temp Pulse Resp B/P Pulse O2 O2 Flow FiO2 Ox Delivery Rate 07/06 814 98.6 69 20 136/84 94 Nasal 3.0L Cannula 07/06 0800 94 Nasal 3.0L Cannula 07/06 0755 94 Nasal 3.0L Cannula 07/06 0000 94 Nasal 3.0L Cannula 07/05 2251 98.2 80 20 138/70 92 Nasal 3.0L Cannula 07/05 1737 Nasal 3.0L Cannula 07/05 1617 98.3 66 20 140/80 94 Nasal 3.0L Cannula 07/05 1600 Nasal 2.0L Cannula Intake & Output 07/06 1600 07/06 0800 07/06 0000 Intake Total 360 350 Output Total 400 200 Balance -40 150 Intake, Oral 360 350 Output, Urine 400 200 Exam Other Physical Findings: Gen - alert and awake HEENT - NCAT CVS - S1, S2, no murmurs, rubs or gallops Lungs - prolonged end expiratory phase, diminished breath sounds Abdomen - soft, non-tender, bs+ Ext - no edema, no cyanosis Results Last 24 Hrs of Lab Results: Laboratory Tests 07/06/16 0627: Anion Gap 6, Estimated GFR > 60, BUN/Creatinine Ratio 24.3, CBC w Diff MAN DIFF ORDERED, RBC 3.90 L, MCV 88.2, MCH 28.4, RDW 14.5, MPV 9.5, Gran % 87.5 H, Lymphocytes % 7.3 L, Monocytes % 5.1, Eosinophils % 0, Basophils % 0.1, Absolute Granulocytes 20.0 H, Absolute Lymphocytes 1.7, Absolute Monocytes 1.2 H, Absolute Eosinophils 0, Absolute Basophils 0, Platelet Estimate VERIFIED BY SMEAR, Polychromasia 1+, Poikilocytosis 1+, Ovalocytes 1+, [place] Cells 1+, PUBS MCHC 32.2 L 07/05/16 1845: Troponin I < 0.01 07/05/16 1155: Troponin I < 0.01 Impression/Plan Impression/Plan Impression/Plan: Impression 65 year old woman * Acute exacerbation of COPD and acute hypoxemic respiratory failure, possibly secondary to acute bronchitis viral or bacterial in nature * Chest pain - reproducible and currently resolved CT chest 07/05/2016 - Emphysematous changes predominantly involving both upper lobes of the lung, appear similar to prior outside CT study dated 07/18/2015 and 01/09/2016. - Previously documented somewhat linear pleuroparenchymal opacities involving the lingula and superior segment of left upper lobe of the lung and left lung base appear stable. - Interval development of nonspecific linear focal pleural parenchymal opacities are noted at the apical segment of right upper lobe of the lung, within the lingular segment of left upper lobe abutting the anteroinferior aspect of the left major fissure, may represent developing pleural parenchymal scar, infiltrate, atelectasis and less likely to be neoplasm. - Atherosclerotic disease including coronary arterial calcifications, unchanged since prior studies. - No CT evidence of any displaced left hemithoracic rib fracture identified. - followup imaging to document stability and/or resolution of the multifocal airspace abnormalities is recommended. Plan - Zithromax was ordered to complete a 5 day course - dc solumedrol - begin prednisone 40mg x 3 days, 30x3, 20x3, 10x3, then stop - patient is on BREO and Incruse at home this is to avoid confusion - Ensure patient gets albuterol/ipratropium nebulized - TRC/Nebs - outpt ct chest follow up DVT prophylaxis at all times DC planning
--- NOTE | 2016-07-06 11:13 | PN- Att Addend ---
Attending Addendum Attending Brief Note Patient reports resolution of left-sided chest pain General Appearance: Alert, No Acute Distress Skin: Grossly normal HEENT: PEERLA Neck: Supple, No JVD Cardiovascular: Left lateral rib tenderness Lungs: Expiratory wheeze Abdomen: Normal Bowel Sounds, Soft, No Tenderness Neurological: Normal Speech, Strength at 5/5 X4 Ext, Cranial Nerves 3-12 NL, Reflexes 2+ Extremities: No Clubbing, No Cyanosis, No Edema Vascular: Normal Pulses Assessment Improved breathing status. An left-sided chest pain resolved. CAT scan chest shows nonspecific findings without evidence of fracture or pleural disease. Nonspecific EKG changes with troponins negative. She is currently awaiting cardiology evaluation. Plan Cardiology evaluation for abnormal EKG May be discharged home if cleared by cardiology Prednisone taper Continue other home meds Discontinue morphine DVT prophylaxis Current Medications Sig/Koby Start time Last Medication Dose Route Stop Time Status Admin Acetaminophen 650 MG Q6P PRN 07/05 1145 AC PO Albuterol Sulfate 3 ML EVERY 4 HRS/AWAKE 07/06 1999 AC 07/06 INH 0745 Alendronate Sodium 70 MG Serrano 07/06 1000 AC 07/06 PO 0824 Atorvastatin Calcium 80 MG DAILY 07/05 1046 AC 07/06 PO 0934 Azithromycin 250 MG DAILY 07/06 1000 CAN IV Azithromycin 500 MG Q24H 07/06 1000 CAN Sodium Chloride 250 ML IV Azithromycin 250 MG DAILY 07/06 1000 AC 07/06 PO 0933 Budesonide/ 2 PUF BID 07/05 1049 DC Formoterol Fumarate INH Buspirone HCl 15 MG BID 07/05 1046 AC 07/06 PO 0932 Clonazepam 1 MG .STK-MED ONE 07/05 2243 DC PO 07/05 2244 Clonazepam 1 MG .STK-MED ONE 07/05 1441 DC PO 07/05 1442 Clonazepam 1 MG BID PRN 07/05 1100 AC 07/05 PO 07/12 1059 2253 Donepezil HCl 5 MG QPM 07/05 2200 AC 07/05 PO 2034 Enoxaparin Sodium 40 MG DAILY 07/06 1000 AC 07/06 SC 0941 Ibuprofen 600 MG Q6P PRN 07/05 1145 AC PO Ipratropium [place] 2.5 ML EVERY 4 HRS/AWAKE 07/06 1999 AC 07/06 INH 0745 Methylprednisolone 40 MG Q8 07/06 0600 DC IV 04/12 2201 Methylprednisolone 40 MG 0500,1700 07/05 1700 DC 07/05 IV 07/06 0000 1624 Methylprednisolone 40 MG Q12 07/05 1315 DC IV 07/06 0000 Morphine Sulfate 1 MG Q4P PRN 07/05 1145 DC IV Paroxetine HCl 40 MG DAILY 07/05 1050 AC 07/06 PO 0934 Prednisone 10 MG DAILY 07/14 1000 AC PO 07/16 0959 Prednisone 20 MG DAILY 07/12 1000 AC PO 07/14 0959 Prednisone 30 MG DAILY 07/10 1000 AC PO 07/12 0959 Prednisone 40 MG DAILY 07/08 1000 AC PO 07/10 0959 Prednisone 50 MG ONCE 07/06 1000 CAN PO 07/16 0959 Prednisone 50 MG DAILY 07/06 1000 AC 07/06 PO 07/08 0959 0934 Prednisone 60 MG ONCE 07/05 1315 DC PO 07/17 1314 Tiotropium [place] 1 PUF DAILY 07/05 1100 DC INH Laboratory Tests 07/06 07/05 07/05 0627 1845 1155 Chemistry Sodium (137 - 145 mmol/L) 141 Potassium (3.5 - 5.1 mmol/L) 4.1 Chloride (98 - 107 mmol/L) 102 Carbon Dioxide (22 - 30 mmol/L) 32 H Anion Gap (5 - 16) 6 BUN (7 - 17 mg/dL) 17 Creatinine (0.5 - 1.0 mg/dL) 0.7 Estimated GFR (>60 ml/min) > 60 BUN/Creatinine Ratio (7 - 25 %) 24.3 Troponin I (< 0.11 ng/ml) < 0.01 < 0.01 Hematology CBC w Diff MAN DIFF ORDERED WBC (4.8 - 10.8 /CUMM) 22.9 H RBC (4.20 - 5.40 /CUMM) 3.90 L Hgb (12.0 - 16.0 G/DL) 11.1 L Hct (37 - 47 %) 34.4 L MCV (81.0 - 99.0 FL) 88.2 MCH (27.0 - 31.0 PG) 28.4 RDW (11.5 - 14.5 %) 14.5 Plt Count (130 - 400 /CUMM) 332 MPV (7.4 - 10.4 FL) 9.5 Gran % (42.2 - 75.2 %) 87.5 H Lymphocytes % (20.5 - 51.1 %) 7.3 L Monocytes % (1.7 - 9.3 %) 5.1 Eosinophils % (0 - 5 %) 0 Basophils % (0.0 - 2.0 %) 0.1 Absolute Granulocytes (1.4 - 6.5 /CUMM) 20.0 H Absolute Lymphocytes (1.2 - 3.4 /CUMM) 1.7 Absolute Monocytes (0.10 - 0.60 /CUMM) 1.2 H Absolute Eosinophils (0.0 - 0.7 /CUMM) 0 Absolute Basophils (0.0 - 0.2 /CUMM) 0 Platelet Estimate (ADEQUATE) VERIFIED BY SMEAR Polychromasia 1+ Poikilocytosis 1+ Ovalocytes 1+ [place] Cells 1+ PUBS MCHC (33.0 - 37.0 G/DL) 32.2 L Vital Signs Date Time Temp Pulse Resp B/P Pulse O2 O2 Flow FiO2 Ox Delivery Rate 07/06 0815 98.6 69 20 136/84 94 Nasal 3.0L Cannula 07/06 0800 94 Nasal 3.0L Cannula 07/06 0755 94 Nasal 3.0L Cannula 07/06 0000 94 Nasal 3.0L Cannula 07/05 2251 98.2 80 20 138/70 92 Nasal 3.0L Cannula 07/05 1737 Nasal 3.0L Cannula 07/05 1617 98.3 66 20 140/80 94 Nasal 3.0L Cannula 07/05 1600 Nasal 2.0L Cannula
--- NOTE | 2016-07-06 14:47 | Cons- Cardiology ---
General Information and HPI Consulting Request Date of Consult: 07/06/16 Requested By: JARRETT LYMAN MD Reason for Consult: Recurrent chest pain. Source of Information: patient, old records Exam Limitations: poor historian History of Present Illness: Mrs. Estela Merritt is a 65-year-old female with a long-standing history of former tobacco use (1 PPD 40 years DC'd 8 years), severe COPD (emphysema) on home O2 (3 L) with previous exacerbations, pulmonary nodules, previous pneumonia, hypertension, and dyslipidemia who presented to the ED with an acute exacerbation of her COPD/acute hypoxemic respiratory failure and nonexertional left lateral chest discomfort described as "sharp", severe (9-10/ 10) intensity, exacerbated by inspiration without positional change, and associated with worsening of her chronic shortness of breath that awakened her from sleep early Thursday morning (07/05/2016). She states that she had been coughing more frequently several days prior to this. In the ED her room air O2 saturation was 88% on 3 L nasal cannula. Mrs. Merritt denies any history of coronary, valvular, dysrhythmic/conduction disease, or cardiomyopathy. Acute exacerbation of COPD and acute hypoxemic respiratory failure, possibly secondary to acute bronchitis viral or bacterial in nature * Chest pain - reproducible and currently resolved Allergies/Medications Allergies: Coded Allergies: latex (Intermediate, RASH 10/02/15) Home Med List: Albuterol Sulfate 2.5 MG/3 ML (0.083 %) VIAL.NEB 1 Vial INH/LAURO Q4P PRN COPD (Reported) Alendronate Sodium 70 MG TABLET 1 TAB PO EVERY THURSDAY osteoporosis (Reported) in the morning, at least 30 minutes before the first food, beverage, or medication of the day Atorvastatin Calcium 80 MG TABLET 1 TAB PO DAILY HIGH CHOLESTROL (Reported) Buspirone HCl 15 MG TABLET 1 TAB PO BID ANXIETY (Reported) Cephalexin (Keflex) 500 MG CAPSULE 1 CAP PO TID PPX Clonazepam 1 MG TABLET 1 TAB PO BIDP PRN ANXIETY (Reported) Donepezil HCl (Aricept) 5 MG TABLET 1 TAB PO QPM dementia (Reported) Fluticasone/Vilanterol (Breo Ellipta 100-25 Mcg INH) 100 MCG-25 MCG/DOSE BLST.W.DEV COPD (Reported) Oxycodone HCl/Acetaminophen (Percocet 5-325 MG Tablet) 1 EACH TABLET 1 TAB PO BID PRN BREAKTHROUGH PAIN Paroxetine HCl 40 MG TABLET 1 TAB PO DAILY ANXIETY (Reported) Umeclidinium [place] (Incruse Ellipta) 62.5 MCG/ACTUATION BLST.W.DEV COPD ( Reported) Review of Systems Review of Systems: A 14 point system review was obtained and was noncontributory, other than as above. 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 BROTHER (Coronary artery disease). Psychosocial History Where Do You Live? Home Services at Home: Oxygen Smoking Status: Former Smoker Functional Ability ADLs Independent: dressing, eating, toileting, bathing. Ambulation: independent Exam & Diagnostic Data Vital Signs and I&O Vital Signs Date Time Temp Pulse Resp B/P Pulse O2 O2 Flow FiO2 Ox Delivery Rate 07/07 0715 98.6 69 20 136/84 94 Nasal 3.0L Cannula 07/07 799 94 Nasal 3.0L Cannula 07/06 0755 94 Nasal 3.0L Cannula 07/06 0000 94 Nasal 3.0L Cannula 07/05 2251 98.2 80 20 138/70 92 Nasal 3.0L Cannula 07/05 1737 Nasal 3.0L Cannula 07/05 1617 98.3 66 20 140/80 94 Nasal 3.0L Cannula 07/05 1600 Nasal 2.0L Cannula Intake & Output 07/06 1600 07/06 0000 07/05 1600 07/05 0000 Intake Total 400 360 350 100 Output Total 400 200 250 250 Balance 400 -40 150 -250 -150 Intake, IV 100 Intake, Oral 400 360 350 Number 0 Bowel Movements Output, Urine 400 200 250 250 Patient 140 lb Weight Physical Exam: Well-developed, overweight, tremulous white female in no acute distress with nasal oxygen in place. Vital signs: See above. HEENT: Normocephalic, atraumatic, EOMI, moist mucous membranes. Neck: No JVD, no bruits. Heart: S1, S2 with grade 1-2/6 systolic murmur best heard at the base. PMI fifth ICS at MCL. No gallop or rub appreciated. Abdomen: Soft, nontender, positive bowel sounds. Extremities: No edema. Palpation 2 lateral aspect of left chest elicits sharp discomfort similar to what she has been experiencing. Labs/Poncho Results: Laboratory Tests 07/06 07/05 07/05 0627 1845 1155 Chemistry Sodium (137 - 145 mmol/L) 141 Potassium (3.5 - 5.1 mmol/L) 4.1 Chloride (98 - 107 mmol/L) 102 Carbon Dioxide (22 - 30 mmol/L) 32 H Anion Gap (5 - 16) 6 BUN (7 - 17 mg/dL) 17 Creatinine (0.5 - 1.0 mg/dL) 0.7 Estimated GFR (>60 ml/min) > 60 BUN/Creatinine Ratio (7 - 25 %) 24.3 Troponin I (< 0.11 ng/ml) < 0.01 < 0.01 Hematology CBC w Diff MAN DIFF ORDERED WBC (4.8 - 10.8 /CUMM) 22.9 H RBC (4.20 - 5.40 /CUMM) 3.90 L Hgb (12.0 - 16.0 G/DL) 11.1 L Hct (37 - 47 %) 34.4 L MCV (81.0 - 99.0 FL) 88.2 MCH (27.0 - 31.0 PG) 28.4 RDW (11.5 - 14.5 %) 14.5 Plt Count (130 - 400 /CUMM) 332 MPV (7.4 - 10.4 FL) 9.5 Gran % (42.2 - 75.2 %) 87.5 H Lymphocytes % (20.5 - 51.1 %) 7.3 L Monocytes % (1.7 - 9.3 %) 5.1 Eosinophils % (0 - 5 %) 0 Basophils % (0.0 - 2.0 %) 0.1 Absolute Granulocytes (1.4 - 6.5 /CUMM) 20.0 H Absolute Lymphocytes (1.2 - 3.4 /CUMM) 1.7 Absolute Monocytes (0.10 - 0.60 /CUMM) 1.2 H Absolute Eosinophils (0.0 - 0.7 /CUMM) 0 Absolute Basophils (0.0 - 0.2 /CUMM) 0 Platelet Estimate (ADEQUATE) VERIFIED BY SMEAR Polychromasia 1+ Poikilocytosis 1+ Ovalocytes 1+ [place] Cells 1+ PUBS MCHC (33.0 - 37.0 G/DL) 32.2 L 07/05 07/05 07/05 1036 0454 0438 Chemistry Sodium (137 - 145 mmol/L) 144 Potassium (3.5 - 5.1 mmol/L) 3.4 L Chloride (98 - 107 mmol/L) 101 Carbon Dioxide (22 - 30 mmol/L) 32 H Anion Gap (5 - 16) 10 BUN (7 - 17 mg/dL) 10 Creatinine (0.5 - 1.0 mg/dL) 0.8 Estimated GFR (>60 ml/min) > 60 BUN/Creatinine Ratio (7 - 25 %) 12.5 Glucose (65 - 99 mg/dL) 90 Calcium (8.4 - 10.2 mg/dL) 8.9 Total Bilirubin (0.2 - 1.3 mg/dL) 0.5 AST (14 - 36 U/L) 18 ALT (9 - 52 U/L) 31 Alkaline Phosphatase (<127 U/L) 90 Troponin I (< 0.11 ng/ml) < 0.01 [id number] Pept (<125 pg/mL) 214 H Total Protein (6.3 - 8.2 g/dL) 6.4 Albumin (3.5 - 5.0 g/dL) 3.6 Globulin (1.9 - 4.2 gm/dL) 2.8 Albumin/Globulin Ratio (1.1 - 2.2 %) 1.3 Coagulation PT (9.4 - 12.5 SEC) 11.4 INR (0.90 - 1.19) 1.09 APTT (25 - 37 SEC) 31 D-Dimer (70 - 232 ng/ml) < 200 Cancelled Hematology CBC w Diff NO MAN DIFF REQ WBC (4.8 - 10.8 /CUMM) 12.8 H RBC (4.20 - 5.40 /CUMM) 4.00 L Hgb (12.0 - 16.0 G/DL) 11.3 L Hct (37 - 47 %) 34.8 L MCV (81.0 - 99.0 FL) 87.2 MCH (27.0 - 31.0 PG) 28.3 RDW (11.5 - 14.5 %) 14.0 Plt Count (130 - 400 /CUMM) 328 MPV (7.4 - 10.4 FL) 9.1 Gran % (42.2 - 75.2 %) 68.6 Lymphocytes % (20.5 - 51.1 %) 25.1 Monocytes % (1.7 - 9.3 %) 4.3 Eosinophils % (0 - 5 %) 1.9 Basophils % (0.0 - 2.0 %) 0.1 Absolute Granulocytes (1.4 - 6.5 /CUMM) 8.8 H Absolute Lymphocytes (1.2 - 3.4 /CUMM) 3.2 Absolute Monocytes (0.10 - 0.60 /CUMM) 0.6 Absolute Eosinophils (0.0 - 0.7 /CUMM) 0.2 Absolute Basophils (0.0 - 0.2 /CUMM) 0 PUBS MCHC (33.0 - 37.0 G/DL) 32.5 L Urines Urine Color Cancelled Urine Clarity Cancelled Urine pH Cancelled Ur Specific [place] Cancelled Urine Protein Cancelled Urine Ketones Cancelled Urine Nitrite Cancelled Urine Bilirubin Cancelled Urine Urobilinogen Cancelled Ur Leukocyte Esterase Cancelled Ur Microscopic Cancelled Urine Hemoglobin Cancelled Urine Glucose Cancelled Diagnostic Data EKG Results (07/05/2016) sinus rhythm, borderline precordial T-wave abnormalities, and borderline prolonged QT interval. Probably no significant change when compared to previous tracing performed earlier (07/05/2016). CXR Results (07/05/2016) Emphysematous hyperlucency of lungs. Lungs are clear. No pulmonary vascular congestion. No infiltrate or pleural effusion. The heart size is normal. The cardiac and mediastinal contours are normal. There are calcifications of the thoracic aorta. There are multilevel degenerative changes of dorsal spine. Other Results Chest CTA (07/05/2016): 1. Emphysematous changes predominantly involving both upper lobes of the lung, appear similar to prior outside CT study dated 07/18/2015 and 01/09/2016. 2. Previously documented somewhat linear pleuroparenchymal opacities involving the lingula and superior segment of left upper lobe of the lung and left lung base appear stable. 3. Interval development of nonspecific linear focal pleural parenchymal opacities are noted at the apical segment of right upper lobe of the lung, within the lingular segment of left upper lobe abutting the anteroinferior aspect of the left major fissure, may represent developing pleural parenchymal scar, infiltrate, atelectasis and less likely to be neoplasm. 4. Atherosclerotic disease including coronary arterial calcifications, unchanged since prior studies. 5. No CT evidence of any displaced left hemithoracic rib fracture identified. 6. Followup imaging to document stability and/or resolution of the multifocal airspace abnormalities is recommended. Assessment/Plan Assessment/Plan 65-year-old female with a long-standing history, severe COPD on 3 L home O2 with previous exacerbations, pulmonary nodules, previous pneumonia, HTN, & HLD who presented with an acute exacerbation of her COPD/acute hypoxemic respiratory failure and nonexertional left lateral chest discomfort described as "sharp", severe (9-10/10) intensity, exacerbated by inspiration without positional change, and associated with worsening of her chronic shortness of breath that lasted 8-9 hours in total, without significant acute ECG changes, troponin elevation, etc. that was easily reproducible to palpation consistent with a musculoskeletal etiology and likely result of her worsening cough last week. She does, however, have multiple risk factors for coronary artery disease and some nondiagnostic electrocardiographic T-wave abnormalities and would benefit from risk stratification with a pharmacologic (dipyridamole) imaging stress test. This can be done on an outpatient basis after her COPD exacerbation has improved. Would also be reasonable having her undergo an echocardiogram to get a baseline of her left ventricular systolic/diastolic function, to exclude left ventricular hypertrophy, to exclude segmental wall motion abnormalities, to assess her right ventricular size/function, and estimated PA systolic pressure etc. Recommendations: * Analgesic management of her atypical and likely musculoskeletal left lateral chest discomfort. * Continue nasal O2, TRC/nebs, steroids, antimicrobial therapy, etc. as per pulmonary medicine. * Schedule echocardiogram that can be done on an outpatient basis. * Schedule pharmacologic (dobutamine) imaging stress test that can also be done on an outpatient basis. * Maximize efforts for coronary artery disease risk reduction. Low fat low cholesterol diet, continue statin. Low salt diet, caloric restriction, monitor blood pressure, etc. * Check glycosylated hemoglobin A1c, free T4, TSH, magnesium, etc. * Continue DVT prophylaxis. * Evaluate for significant tremulousness. Further recommendations will follow, Thank you. Consult Acknowledgment - Thank you for your consult request.
[2016-07-06 16:22] VITALS: BP 138/78
[2016-07-06] MEDS ORDERED: PREDNISONE10 M2 PO (17:07)
[2016-07-06] MEDS ORDERED: ZITHROMAX250 M2 PO (17:09)
--- NOTE | 2016-07-06 17:14 | Patient Discharge Instructions ---
Discharge Instructions General Discharge Information You were seen/treated for: Chest pain, probably secondary to COPD exacerbation Special Instructions: Please follow-up with your PCP within a week of discharge Please follow-up with your film rental clerk/Dr. Sawyer within a week of discharge. He may need outpatient chest CT scan. Please follow-up with the carton catcher/ Dr Harper within a week of discharge. He may need echocardiogram/cardiac stress test to rule out coronary disease. Monitor your blood pressure and bring the log. PCP. Diet Continue normal diet: No Recommended Diet: Heart Healthy, Low Fat, low salt, caloric restriction Activity Full Activity/No Limits: No (as tolerated) Acute Coronary Syndrome Inclusion Criteria At DC or during hospital stay patient has or had the following: ACS DIAGNOSIS No Discharge Core Measures Meds if any: Prescribed or Continued at Discharge Meds if any: NOT Prescribed or Continued at Discharge Congestive Heart Failure Inclusion Criteria At DC or during hospital stay patient has or had the following: CHF DIAGNOSIS No Discharge Core Measures Meds if any: Prescribed or Continued at Discharge Meds if any: NOT Prescribed or Continued at Discharge Cerebrovascular accident Inclusion Criteria At DC or during hospital stay patient has or had the following: CVA/TIA Diagnosis No Discharge Core Measures Meds if any: Prescribed or Continued at Discharge Meds if any: NOT Prescribed or Continued at Discharge Venous thromboembolism Inclusion Criteria VTE Diagnosis No VTE Type NONE VTE Confirmed by (Test) NONE Discharge Core Measures - Per Current guidelines, there needs to be overlap - treatment for the first 5 days of Warfarin therapy. - If discharged on Warfarin prior to 5 days of - overlap therapy, the patient will need to be - assessed for post discharge needs including - *Post discharge parental anticoagulation - *Warfarin and/or parental anticoagulation education - *Follow up date to check INR post discharge At least 5 days overlap therapy as Inpatient No Meds if any: Prescribed or Continued at Discharge Warfarin No Note: Overlap Therapy is Warfarin and Anticoagulant Meds if any: NOT Prescribed or Continued at Discharge
--- NOTE | 2016-07-23 14:34 | Discharge Summary ---
Visit Information Visit Dates Admission Date: 07/05/16 Discharge Date: 07/06/16 Hospital Course Course Attending Physician: JARRETT LYMAN MD Primary Care Physician: JARRETT LYMAN MD Consulting Request: Consulting Specialty: Pulmonary Disease Consulting Physician: Dr. Ryne Sawyer [facility] Course: 65-year-old history of COPD on 3 L of oxygen, anxiety, dementia who has been following pulmonary with repeat CAT scans of the chest presents with sudden onset left chest discomfort. Vital signs-temperature 97.9, pulse 79, respiratory rate 20, blood pressure 130/78, SPO2 94% on 2 liters of nasal cannula. 1. Left-sided chest pain EKG showed ST depressions on lateral leads however troponins were negative and there are no prior EKGs to compare. She did have mild COPD exacerbation and her chest pain appears noncardiac maybe more muscular skeletal/pleural-based. Patient was followed by cardiology who thought EKG changes were nonspecific and chest pain noncardiac. However recommendations were made for outpatient echocardiogram and chemical stress test. 2.COPD acute exacerbation Patient was treated for mild COPD exacerbation with sore Medrol and was then later transitioned to prednisone taper. CAT scan chest with IV contrast did not show any acute lesions on the left side however there were pleural scar and other nonspecific changes on the right apex. Patient was followed by pulmonary and they recommended outpatient follow-up CAT scans. Allergies: Coded Allergies: latex (Intermediate, RASH 10/02/15) Significant Procedures: CT chest with IV contrast IMPRESSION: 1. Emphysematous changes predominantly involving both upper lobes of the lung, appear similar to prior outside CT study dated 07/18/2015 and 01/09/2016. 2. Previously documented somewhat linear pleuroparenchymal opacities involving the lingula and superior segment of left upper lobe of the lung and left lung base appear stable. 3. Interval development of nonspecific linear focal pleural parenchymal opacities are noted at the apical segment of right upper lobe of the lung, within the lingular segment of left upper lobe abutting the anteroinferior aspect of the left major fissure, may represent developing pleural parenchymal scar, infiltrate, atelectasis and less likely to be neoplasm. 4. Atherosclerotic disease including coronary arterial calcifications, unchanged since prior studies. 5. No CT evidence of any displaced left hemithoracic rib fracture identified. 6. Followup imaging to document stability and/or resolution of the multifocal airspace abnormalities is recommended. Disposition Summary Disposition Principal Diagnosis: atypical chest pain Additional Diagnosis: COPD Exacerbation Discharge Disposition: home or self care Discharge Instructions General Discharge Information Code Status: Full Code Patient's Diet: heart and healthy Patient's Activity: no restrictions Follow-Up Instructions/Appts: follow-up with pulmonology and cardiology as outpatient for further cardiac workup including echocardiogram and stress test. She will need follow-up CAT scan chest in 3-6 months. Medications at Discharge Discharge Medications: Stop taking the following medications: Cephalexin (Keflex) 500 MG CAPSULE ORAL THREE TIMES DAILY Qty = 15 Continue taking these medications: Umeclidinium Vancourt (Incruse Ellipta) 62.5 MCG/ACTUATION BLST.W.DEV Qty = 30 Comments: Last Taken: 07-06-16 Time: 4:30 PM RECEIVED NEB TREATMENT Fluticasone/Vilanterol (Breo Ellipta 100-25 Mcg INH) 100 MCG-25 MCG/DOSE BLST.W.DEV Qty = 60 Comments: Last Taken: 07-06-16 Time: 430 PM RECEIVED NEB TREATMENT Atorvastatin Calcium (Atorvastatin Calcium) 80 MG TABLET 1 Tablet ORAL DAILY Comments: Last Taken: 07-06-16 Time: 0930 Paroxetine HCl (Paroxetine HCl) 40 MG TABLET 1 Tablet ORAL DAILY Comments: Last Taken: 07-06-16 Time: 0930 AM Buspirone HCl (Buspirone HCl) 15 MG TABLET 1 Tablet ORAL TWICE DAILY Comments: Last Taken: 07-06-16 Time: 0930 Alendronate Sodium (Alendronate Sodium) 70 MG TABLET 1 Tablet ORAL EVERY THURSDAY Instructions: in the morning, at least 30 minutes before the first food, beverage, or medication of the day Comments: Last Taken: 07-06-16 Time: 0830 Donepezil HCl (Aricept) 5 MG TABLET 1 Tablet ORAL Every night Comments: Last Taken: 07-05-16 Time: 0830 PM Clonazepam (Clonazepam) 1 MG TABLET 1 Tablet ORAL 2 x Daily as needed as needed for ANXIETY Comments: Last Taken: 07-05-16 Time: 1050PM Albuterol Sulfate (Albuterol Sulfate) 2.5 MG/3 ML (0.083 %) VIAL.NEB 1 Vial Inhale Solution EVERY 4 HOURS NEEDED as needed for COPD Qty = 30 Comments: Last Taken: 07-06-16 Time: 4:30 PM Start taking the following new medications: Prednisone (Prednisone) 10 MG TABLET 1 Tablet ORAL DAILY Qty = 50 No Refills Instructions: 50mg once daily for 2 days (07/07/2016 - 07/08/2016) 40mg once daily for 3 days (07/09/2016 - 07/11/2016) 30mg once daily for 3 days (07/12/2016 - 07/14/2016) 20mg once daily for 3 days (07/15/2016 - 07/17/2016) 10mg once daily for 3 days (07/18/2016 - 07/20/2016) then 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
== END 2016-07-06 18:00 | DRG 190 ==
LOC: ENRESERVDT → ENRESERVTM → ERH 04:19 → ERHI 04:37 → 1NO 10:00
PROVIDERS: Pediatrics; Preventive Medicine Public Health & General Preventive Medicine; ADMIT Internal Medicine
DX: J44.1 Chronic obstructive pulmonary disease with (acute) exacerbation (principal); J96.01 Acute respiratory failure with hypoxia; F03.90 Unspecified dementia, unspecified severity, without behavioral disturbance, psychotic disturbance, mood disturbance, and anxiety; J20.9 Acute bronchitis, unspecified; J44.0 Chronic obstructive pulmonary disease with (acute) lower respiratory infection; E78.5 Hyperlipidemia, unspecified; I10 Essential (primary) hypertension; F41.9 Anxiety disorder, unspecified; Z86.73 Personal history of transient ischemic attack (TIA), and cerebral infarction without residual deficits; Z87.891 Personal history of nicotine dependence
CPT/HCPCS: 1NSP; 82436; 87040; 93005; 93010; 96374; 96375; 99291; J0131; J0456; J0696; J1650; J1885; J2920; J2930; J3490; J7512